=== PATIENT | female | born 1960 | race Two or more races ===

== ENCOUNTER → 2024-11-03 | Outpatient (CLI) | payer MEDICAID ==
--- NOTE | 2024-11-03 10:40 | DVH ---
XY FLUOROGUIDANCE FOR NEEDLE PLAC HISTORY: PAIN IN LEFT SHOULDER COMPARISON: None PROCEDURE: The risks and benefits of the procedure including infection, hemorrhage and technical failure were di scussed with the patient, who agreed to proceed. The patient was positioned supine on the fluoroscopy table. Time out was performed. The left shoulder was localized using fluoroscopy, and the location on the skin for needle insertion was marked. The r egion was prepped and draped using routine sterile technique. Approximately 2 cc of lidocaine was inj ected for local anesthesia. A 22 gauge spinal needle was inserted, and intra-articular location was c onfirmed by injection of less than 1 cc of Omni. _10 mL of Omni was then injected without complicatio n. Fluoroscopy time was 0.3 minutes. DAP 4.8 The patient was informed of the temporary precautions to take following the procedure as well as of t he potential signs and symptoms which may indicate the need to contact physician, and expressed unde rstanding of this discussion. IMPRESSION: Iodinated contrast injection into the left shoulder for CT arthrogram.
--- NOTE | 2024-11-03 12:12 | DVH ---
CLINICAL INFORMATION: 64 years old, Female; PAIN IN LEFT SHOULDER. TECHNIQUE: Axial CT arthrogram images of the left shoulder were obtained after the uneventful intra-a rticular injection of omnipaque contrast into the left glenohumeral joint under fluoroscopic guidance . Coronal and sagittal reformatted images were obtained, reviewed, and stored. All CT scans at this medical facility are performed using dose modulation techniques as appropriate to a performed exam i ncluding the following: Automated exposure control was utilized; adjustment of the MA and/or KV accor ding to patient size; and use of iterative reconstruction technique. CTDIvol = 30.28 mGy DLP = 669.53 mGy-cm COMPARISON: Correlation made to same day arthrogram injection images. FINDINGS: The sagittal reformatted images are not aligned perpendicular to the scapula, limiting eval uation. Utwv-ic-rdhlvpqw acromioclavicular hypertrophy. There is a bursal surface tear involving the anterior margin of the supraspinatus tendon insertional footprint measuring up to approximately 0.6 x 0.6 cm, involving greater than 50% of the tendon thickness. There is suspected small full-thickness communication of the tear given the contrast visualized in the subacromial/subdeltoid bursa. No other evidence for rotator cuff tear visualized long head biceps tendon appears grossly intact. Possible f raying of the posterior superior labrum. Bsmy-fo-judajnyj arthritic changes of the glenohumeral joint . There is adequate distention of the joint with contrast. No loose bodies or significant synovitis v isualized. Visualized musculature appears unremarkable. No significant fatty atrophy demonstrated. IMPRESSION: 1. Bursal surface tear involving the anterior margin of the supraspinatus tendon insertional footprin t. Suspected small full-thickness communication of the tear, with contrast visualized in the subacrom ial/ subdeltoid bursa. 2. Hmlb-xw-iczrblte acromioclavicular hypertrophy and fbyy-vu-mypscrsm arthritic changes of the gleno humeral joint. 3. Suspected fraying or possible small tear of the posterior superior labrum. 4. Additional findings as detailed above.
== END | disposition home or self-care (01) ==
LOC: CT 08:30
PROVIDERS: ATTEND Orthopaedic Surgery Sports Medicine
DX: M19.012 Primary osteoarthritis, left shoulder (principal); M75.122 Complete rotator cuff tear or rupture of left shoulder, not specified as traumatic
CPT/HCPCS: 23350; 73201; 77002; Q9967; 73200